=== PATIENT | female | born 1975 | race Caucasian/White ===

== ENCOUNTER 2023-10-19 13:41 | Emergency (ER) | payer MEDICARE, SELFPAY ==
[2023-10-19 13:47] VITALS: BP 98/64; PULSE 77; RESP 16; TEMP 36.4; O2SAT 99
--- NOTE | 2023-10-19 13:54 | XRR_ITS ---
PROCEDURE INFORMATION: Exam: XR Lumbosacral Spine Exam date and time: 10/19/2023 2:00 PM Age: 47 years old Clinical indication: Low back pain TECHNIQUE: Imaging protocol: Radiologic exam of the lumbosacral spine. Views: 2 or 3 views. COMPARISON: No relevant prior studies available. FINDINGS: Bones/joints: Mild facet arthropathy at L4-L5 and L5-S1. Mild loss of disc space height at L4-L5. No fracture or bony destructive lesion. Soft tissues: Unremarkable. XR/XR lumbar spine 2-3V* [id number] IMPRESSION: No acute findings.
[2023-10-19] MEDS: ketorolac 60 mg/2 mL INJ IM (14:19)
--- NOTE | 2023-10-19 14:45 | ED_ITS ---
Documented by User: [email or web address] Yin 10/19/23 14:50 HPI - Back Pain/Injury General: Chief Complaint: Back Pain/Injury Stated Complaint: back pain Time Seen by Provider: 10/19/23 13:54 Source: patient Mode of arrival: ambulatory Limitations: no limitations History of Present Illness: Patient is a 47-year-old female presenting to the emergency department complaining of low back pain status post fall on Wednesday. Patient notes she was at [facility] and was on the tailgate of a truck, when she attempted to step down and lost her footing, causing her to hit her sacral region directly on the ground. She did not seek evaluation at that time as she did not report any initial complaints other than some pain. However the pain has started to increase over the past few days, and she just wants fractures or other injuries ruled out. She has not taken anything for pain prior to this time, and notes remaining ambulatory. She denies any red flag back symptoms such as loss of bowel or bladder function, saddle anesthesia, or other distal neurovascular complaints. She has no prior history of injuries to her back. She currently states that she is in between primary care providers as she is moving from [place]. She reports no other symptoms at this time. MD elicited complaint: back pain Pertinent past history: recent trauma Onset (ago): day(s) Timing: constant Severity: moderate Similar Symptoms Previously: No Location: lumbar spine and sacrum Radiation: none Exacerbating factors: movement Context: fall Associated symptoms: Reports no associated symptoms; Deny abdominal pain, chills, dysuria, fatigue, fever(s), nausea or vomiting Work related injury: No Review of Systems General: Reports: 10 or more systems reviewed and unremarkable except in HPI and below Const: Denies: fever(s), chills or fatigue Eyes: Denies: change in vision ENMT: Denies: throat pain, ear or mastoid pain or nasal discharge Card: Denies: chest pain, palpitations, swelling of feet/ankles or lightheadedness Resp: Denies: dyspnea, productive cough or wheezing GI: Denies: abdominal pain, nausea, vomiting, diarrhea or constipation : Denies: flank pain, difficulty voiding, dysuria or urinary frequency Musc: Reports: back pain; Denies: neck pain or joint pain Skin/Breast: Denies: rash Neuro: Denies: headache(s), numbness in extremities or weakness in extremities Physical Exam Const: COMMON NORMALS: no acute distress, patient oriented x3 and no limitations GENERAL APPEARANCE: cooperative, comfortable and well developed ORIENTATION/CONSCIOUSNESS: Yes awake, Yes oriented to person, Yes oriented to place and Yes oriented to time HENMT: COMMON NORMALS: normocephalic, atraumatic and hearing grossly normal bilaterally HEAD & SCALP: normocephalic and atraumatic Eye: COMMON NORMALS: Equal, round and reactive pupils present, EOMs intact bilaterally and conjunctivae normal CONJUNCTIVA: Yes conjunctivae normal PUPIL: Yes Equal, round and reactive pupils present Neck/C-Spine: COMMON NORMALS: full ROM, supple and no JVD Resp: COMMON NORMALS: normal respiratory effort, No retractions, No use of accessory muscles and clear to auscultation bilaterally AUSCULTATION: clear to auscultation bilaterally Cardio: COMMON NORMALS: no JVD, regular rate, regular rhythm, No clicks present (Cardio), No murmurs present (Cardio) and No rub (Cardio) RATE: regular rate RHYTHM: regular rhythm Back/Pelvis: COMMON NORMALS: thoracic and lumbar spine normal to inspection and thoraco-lumbar ROM normal OTHER: Very mild reproducible tenderness to palpation about the lower lumbar/sacral region. There are no obvious signs of deformity or trauma. Extremity: COMMON NORMALS: normal to inspection, full ROM and capillary refill normal Neuro: COMMON NORMALS: patient oriented x3, moves all extremities, no focal motor deficits and no sensory deficits noted SENSORIUM/ORIENTATION: Yes oriented to person, Yes oriented to place and Yes oriented to time Psych: COMMON NORMALS: mental status grossly normal and Normal thought process present THOUGHT PROCESS: Normal thought process present Skin: COMMON NORMALS: no rashes or lesions noted GENERAL SKIN EXAM: no rashes or lesions noted Course Vital Signs: Vital signs: Vital Signs Temperature 97.6 F 10/19/23 13:47 Pulse Rate 77 10/19/23 13:47 Respiratory Rate 16 10/19/23 13:47 Blood Pressure 98/64 10/19/23 13:47 Pulse Oximetry 99 10/19/23 13:47 MDM - Back Pain/Injury Medical Decision Making This patient was seen and evaluated in the emergency department today due to low back pain status post fall last Wednesday. On arrival patient's vitals normal have remained stable throughout the ED course. Exam essentially unremarkable aside from some minimal reproducible tenderness palpation about the spinous process of the lumbar/sacral region. There was no bruising or other signs of trauma. X- ray obtained of the lumbar region showed no acute findings. Patient had noted that she remained ambulatory and just wanted fractures ruled out as she is currently in the middle of a move from [place] to [place]. I gave the patient a shot of IM Toradol, and upon recheck states that she felt a little better. She states that she will tolerate the pain at home with ibuprofen and Tylenol, and ice as needed. I instructed her to maintain gentle range of motion as tolerated, and to follow-up with primary care as needed. However I did inform her of return precautions for red flag back symptoms such as loss of bowel or bladder function or groin numbness. Patient agrees with this plan. Labs Radiology Impressions Lumbar Spine X-Ray 10/19/23 13:54 IMPRESSION: No acute findings. All radiology interpretation(s) finalized by discharge Discharge Plan Discharge Patient Disposition: Home Clinical Impression: Contusion of lower back Qualifiers: Encounter type: initial encounter Qualified Code(s): S30.0XXA - Contusion of lower back and pelvis, initial encounter Condition: Stable Discharge Orders: Discharge ED (Routine); Ordered 10/19/23 Ordered By: Lee Maxwell Discharge Diet: Usual diet Discharge Activity: Increase activity as tolerated Patient Instructions: Back Pain (ED) Activity Restrictions/Additional Instructions: Tylenol and ibuprofen as needed. Ice for added relief. Gentle range of motion exercises as tolerated. Please follow-up with your primary care provider when established. Return with any new or concerning symptoms such as loss of bowel or bladder function or distal neurovascular issues. Coding Level of Care Code ED Form Maker Plaster for Chg Fwd Documented by User: Dario King DO 10/20/23 05:54 HPI - Back Pain/Injury General: Chief Complaint: Back Pain/Injury Stated Complaint: back pain Time Seen by Provider: 10/19/23 13:54 Course Vital Signs: Vital signs: Vital Signs Temperature 97.6 F 10/19/23 13:47 Pulse Rate 77 10/19/23 13:47 Respiratory Rate 16 10/19/23 13:47 Blood Pressure 98/64 10/19/23 13:47 Pulse Oximetry 99 10/19/23 13:47 MDM - Back Pain/Injury Medical Decision Making This patient was seen and evaluated in the emergency department today due to low back pain status post fall last Wednesday. On arrival patient's vitals normal have remained stable throughout the ED course. Exam essentially unremarkable aside from some minimal reproducible tenderness palpation about the spinous process of the lumbar/sacral region. There was no bruising or other signs of trauma. X- ray obtained of the lumbar region showed no acute findings. Patient had noted that she remained ambulatory and just wanted fractures ruled out as she is currently in the middle of a move from [place] to [place]. I gave the patient a shot of IM Toradol, and upon recheck states that she felt a little better. She states that she will tolerate the pain at home with ibuprofen and Tylenol, and ice as needed. I instructed her to maintain gentle range of motion as tolerated, and to follow-up with primary care as needed. However I did inform her of return precautions for red flag back symptoms such as loss of bowel or bladder function or groin numbness. Patient agrees with this plan. Chart reviewed Labs Radiology Impressions Lumbar Spine X-Ray 10/19/23 13:54 IMPRESSION: No acute findings. Discharge Plan Discharge Patient Disposition: Home Clinical Impression: Contusion of lower back Qualifiers: Encounter type: initial encounter Qualified Code(s): S30.0XXA - Contusion of lower back and pelvis, initial encounter Condition: Stable Discharge Orders: Discharge ED (Routine); Ordered 10/19/23 Ordered By: Lee Maxwell Discharge Diet: Usual diet Discharge Activity: Increase activity as tolerated Patient Instructions: Back Pain (ED) Activity Restrictions/Additional Instructions: Tylenol and ibuprofen as needed. Ice for added relief. Gentle range of motion exercises as tolerated. Please follow-up with your primary care provider when established. Return with any new or concerning symptoms such as loss of bowel or bladder function or distal neurovascular issues. Coding Level of Care Code ED Form Maker Plaster for Linda Garcia
== END 2023-10-19 14:47 | disposition home or self-care (01) ==
PROVIDERS: Emergency Provider Physician Assistant
DX: S30.0XXA Contusion of lower back and pelvis, initial encounter (principal); W17.89XA Other fall from one level to another, initial encounter
CPT/HCPCS: 72100; 96372; 99284; J1885